=== PATIENT | male | born 1940 | race Caucasian/White ===

== ENCOUNTER → 2018-10-01 | Outpatient (CLI) | payer OTHER ==
[~2018-10-01] MED LIST: LEVOTHYROXINE0.05 MG PO; LIPITOR 20 MG T20 M1 PO; LISINOPRIL20 MG PO; PERCOCET PO
--- NOTE | 2018-10-02 07:22 | PF ---
[address] [address] PULMONARY FUNCTION REPORT Name: JULIANA MO III [id number] Admission: 10/01/18 Attend Phys: Samantha. EDY Cade Discharge: Date of : 38 Report #: [id number] THIS REPORT FOR: //name// CC: ANT Mayorga. Diego Vitale DATE OF SERVICE: 10/01/2018 PRIMARY CARE PHYSICIAN: Dr. Benjie Vitale and Ant Cortez, nurse practitioner. A 77-year-old male with dyspnea. Spirometry shows within normal limits. Best effort shows an FEV1 at 2.8 and FVC of 3.8, ratio 75%. FEV1 is 100% of predicted. FVC is 96% of predicted. Mid flow rates were within normal limits. Lung volumes performed via plethysmography show mild restrictive defect with mild decrease in total lung capacity. Vital capacity was within normal limits. Residual volume mildly diminished. Diffusion was lower limits of normal at 75% of predicted. IMPRESSION: Abnormalities suggest very mild restrictive defect, maybe, somewhat in part to the patient's body habitus. No significant interstitial lung disease is noted at this time. No complications to the above procedure. <ELECTRONICALLY SIGNED> By: Abner Manriquez MD 10/02/18 0722 [id number] manuel Padron
== END ==
LOC: M.PUL 09:58
DX: R06.00 Dyspnea, unspecified (principal)

== ENCOUNTER → 2018-10-28 | Outpatient (CLI) | payer OTHER ==
[2018-10-28 09:08] LABS: CREATININE 1.7 mg/dL (0.6-1.3)
== END ==
LOC: M.LAB 10-26 13:44
PROVIDERS: Surgery
DX: M47.894 Other spondylosis, thoracic region (principal); I71.2 Thoracic aortic aneurysm, without rupture; J92.0 Pleural plaque with presence of asbestos; J84.9 Interstitial pulmonary disease, unspecified; I25.10 Atherosclerotic heart disease of native coronary artery without angina pectoris; K44.9 Diaphragmatic hernia without obstruction or gangrene; G89.29 Other chronic pain

== ENCOUNTER → 2018-12-29 | Outpatient (CLI) | payer OTHER ==
[2018-12-29 10:45] LABS: CREATININE 1.7 mg/dL (0.6-1.3)
== END ==
LOC: M.LAB 10:00 → M.CT 11:30
PROVIDERS: Physician Assistant
DX: K44.9 Diaphragmatic hernia without obstruction or gangrene (principal); J98.4 Other disorders of lung; N26.1 Atrophy of kidney (terminal)

== ENCOUNTER → 2019-11-23 | Outpatient (CLI) | payer OTHER | LOC: M.CT 09:11 | DX: I70.0 Atherosclerosis of aorta (principal); J92.9 Pleural plaque without asbestos; J84.10 Pulmonary fibrosis, unspecified; J84.89 Other specified interstitial pulmonary diseases; I25.10 Atherosclerotic heart disease of native coronary artery without angina pectoris; M47.814 Spondylosis without myelopathy or radiculopathy, thoracic region; M19.011 Primary osteoarthritis, right shoulder ==

== ENCOUNTER → 2020-05-17 | Outpatient (CLI) | payer OTHER ==
--- NOTE | 2020-05-17 14:03 | 2DMMODE ---
[place] [address] 2 D/M-MODE ECHOCARDIOGRAM Name: JULIANA OM III Room: [facility]#: [id number] Admission: 05/17/20 Attend Phys: Spencer Cross, Discharge: Date of : 38 Date of Service: 05/17/20 1403 Report #: [id number] THIS REPORT FOR: cc: Benjie Vitale Steve T. DO Blick,Papi Estrada MD [facility] ~ APPROVED REPORT Study performed: 05/17/2020 13:04:15 EXAM: Comprehensive 2D, Doppler, and color-flow Echocardiogram Patient Location: Out-Patient BSA: 2.05 HR: 78 bpm BP: 116/70 mmHg Other Information Study Quality: Fair Indications Dyspnea 2D Dimensions IVSd: 10.71 (7-11mm) LVOT Diam: 20.30 (18-24mm) LVDd: 42.76 mm PWd: 11.08 (7-11mm) Ascending Ao: 38.73 (22-36mm) LVDs: 32.71 (25-40mm) Aortic Root: 31.13 mm Volumes Left Atrial Volume (Systole) LA ESV Index: 17.70 mL/m2 Aortic Valve AoV Peak Hans.: 1.23 m/s AO Peak Gr.: 6.10 mmHg LVOT Max P.25 mmHg AO Mean Gr.: 3.31 mmHg LVOT Mean P.68 mmHg LVOT Max V: 0.90 m/s AO V2 VTI: 30.22 cm LVOT Mean V: 0.60 m/s MACY (VTI): 2.75 cm2 LVOT V1 VTI: 25.70 cm Mitral Valve E/A Ratio: 0.63 [place] [address] 2 D/M-MODE ECHOCARDIOGRAM Name: JULIANA MO [facility] Room: [facility]#: [id number] Admission: 05/17/20 Attend Phys: Spencer Cross, Discharge: Date of : 38 Date of Service: 05/17/20 1403 Report #: [id number] MV Decel. Time: 261.06 ms MV E Max Hans.: 0.71 m/s MV PHT: 75.71 ms MVA (PHT): 2.91 cm2 TDI E/Lateral E': 8.88 E/Medial E': 14.20 Medial E' Hans.: 0.05 m/s Lateral E' Hans.: 0.08 m/s Pulmonary Valve PV Peak Hans.: 0.90 m/s PV Peak Gr.: 3.21 mmHg Tricuspid Valve RAP Estimate: 5.00 mmHg TR Peak Gr.: 30.52 mmHg RVSP: 35.52 mmHg PA Pressure: 35.52 mmHg Left Ventricle The left ventricle is normal size. There is normal LV segmental wall motion. There is normal left ventricular wall thickness. Left ventricular systolic function is normal. The left ventricular ejection fraction is within the normal range. LVEF is 55-60%. Grade I - abnormal relaxation pattern. Right Ventricle The right ventricle is normal size. The right ventricular systolic function is normal. Atria The left atrium size is normal. The right atrium size is normal. Aortic Valve Aortic valve is mildly calcified. No aortic regurgitation is present. There is no aortic valvular stenosis. Mitral Valve Mild mitral annular calcification. The mitral valve is normal in structure. Mild mitral regurgitation. No evidence of mitral valve stenosis. Tricuspid Valve The tricuspid valve is normal in structure. Mild tricuspid regurgitation. estimated pa pressure 40 [place] [address] 2 D/M-MODE ECHOCARDIOGRAM Name: [id number] Admission: 05/17/20 Attend Phys: Spencer Cross, Discharge: Date of : 38 Date of Service: 05/17/20 1403 Report #: [id number] Pulmonic Valve The pulmonary valve is normal in structure. Mild pulmonic regurgitation. Great Vessels The aortic root is normal in size. The ascending aorta is mildly dilated. IVC is normal in size and collapses >50% with inspiration. Pericardium There is no pericardial effusion. <Conclusion> LVEF is 55-60%. Aortic valve is mildly calcified. Mild tricuspid regurgitation. estimated pa pressure 40 mm Hg <ELECTRONICALLY SIGNED> By: Papi Mcnair MD, [facility] 05/17/20 1403 1403 1403 Papi Mcnair MD, FACC /INF
--- NOTE | 2020-05-19 18:29 | CARDNUC ---
[place] [address] CARDIAC NUCLEAR IMAGING REPORT Name: JULIANA MO III Room: [facility]#: [id number] Admission: 05/17/20 Attend Phys: Spencer Cross, Discharge: Date of : 38 Date of Service: 05/19/20 1828 Report #: [id number] THIS REPORT FOR: cc: Benjie Vitale Steve T. DO Liston,Spencer Greer MD [facility] ~ APPROVED REPORT Study performed: 05/17/2020 15:37:11 Indication: Dyspnea Patient Location: Out-Patient Stress Tech: Julianne Beltran Stress Nurse: Eileen Plascencia RN Ht: 5 ft 9 in Wt: 195 lbs BSA: 2.04 m2 BMI: 28.79 Medical History Medical History: HTN, Hyperlipidemia Medications: atorvastatin, lisinopril Allergies: penicllin Cardiac Risk Factors: HTN, Hyperlipidemia, Tobacco History (Former) Exercise History: Physically active Resting Data Rest SPECT myocardial perfusion imaging was performed in supine position 30 minutes following the intravenous injection of 10.1 mCi of Tc-99m Sestamibi. Time of rest injection: 1410 The images were gated to evaluate regional wall motion and calculate left ventricular ejection fraction. Administration Route: IV Administration Site: Right Arm Exercise Stress At peak stress, the patient was injected intravenously with 32.9mCi of Tc-99m Sestamibi. Time of stress injection: 15:55 Administration Route: IV Administration Site: Right Arm Heart Rate at time of stress injection: 136 bpm. Patient continued to exercise for 1 minute(s[place] [address] CARDIAC NUCLEAR IMAGING REPORT Name: JULIANA MO EDCHEPE NGUYEN Room: [facility]#: [id number] Admission: 05/17/20 Attend Phys: Spencer Cross, Discharge: Date of : 38 Date of Service: 05/19/20 1828 Report #: [id number] Gated Stress SPECT was performed 30 minutes after stress injection. The images were gated to evaluate regional wall motion and calculate left ventricular ejection fraction. Prone imaging was performed. Stress Test Details Stress Test: Exercise stress testing was performed using a Juan protocol. HR Max Heart Rate (APMHR): 140 bpm Resting HR: 87 bpm Target HR (85% APMHR): 119 bpm Max HR Achieved: 136 bpm % of APMHR: 97 Recovery HR: 86 bpm BP Resting BP: 117/69 mmHg Max BP: 163/86 mmHg Recovery BP: 141/75 mmHg ECG Resting ECG: Sinus Rhythm Stress ECG: Sinus Tachycardia ST Change: None Arrhythmia: APC's Recovery ECG: Sinus Rhythm Recovery ST Change: None Recovery Arrhythmia: APC's Clinical The patient tolerated exercise per standard Juan protocol without significant cardiac symptoms. Stress ECG Conclusion Baseline twelve-lead EKG shows sinus rhythm without significant ST segment abnormality. EKGs obtained during and post exercise shows sinus rhythm and sinus tachycardia with no significant ST segment changes when compared to baseline. There were frequent and consecutive premature atrial contractions noted during and post exercise. Study Quality Study: Good Artifact: [place] [address] CARDIAC NUCLEAR IMAGING REPORT Name: JULIANA MO III Room: [facility]#: [id number] Admission: 05/17/20 Attend Phys: Spencer Cross, Discharge: Date of : 38 Date of Service: 05/19/20 1828 Report #: [id number] At rest, the left ventricular ejection fraction was 68%.. Post stress, the left ventricular ejection was 72%.. TID = 0.86. Perfusion Perfusion images obtained at rest and post exercise stress showed no defect to suggest infarct or ischemia. Wall Motion Left ventricular systolic function appears normal on gated studies. There were no significant wall motion abnormalities noted. Nuclear Conclusion ECG Findings: negative for ischemia Clinical Findings: negative for ischemia Nuclear Findings: negative for ischemia Exercise Capacity: Fair Left Ventricular Function: normal Risk Study: low Perfusion study show no defect to suggest infarct or ischemia. Left ventricular systolic function appears normal on gated studies. This is a low risk study. <Conclusion> Baseline twelve-lead EKG shows sinus rhythm without significant ST segment abnormality. EKGs obtained during and post exercise shows sinus rhythm and sinus tachycardia with no significant ST segment changes when compared to baseline. There were frequent and consecutive premature atrial contractions noted during and post exercise. <ELECTRONICALLY SIGNED> By: Spencer Cross MD, [facility] 05/19/201827 27 27 Spencer Cross MD, FACC /INF
== END ==
LOC: M.CRD 04-18 08:58
PROVIDERS: ATTEND Internal Medicine Cardiovascular Disease
DX: I08.8 Other rheumatic multiple valve diseases (principal); I25.10 Atherosclerotic heart disease of native coronary artery without angina pectoris

== ENCOUNTER → 2020-05-30 | Outpatient (CLI) | payer OTHER ==
--- NOTE | ~2020-05-30 | PF ---
[address] [address] PULMONARY FUNCTION REPORT Name: JULIANA MO NGUYEN Room: [facility]#: [id number] Admission: 05/30/20 Attend Phys: Benjie Vitale DO Discharge: Date of : 38 Report #: [id number] THIS REPORT FOR: //name// CC: Ramin Vitale DATE OF SERVICE: 05/30/2020 The FEV1/FVC ratio was decreased to 68% with a forced vital capacity decreased to 47%. The FEV1 is decreased to 45%. The FEF 25-75 is decreased to 34%. After the administration of a bronchodilator, there is a 13% increase in FVC, 26% increase in FEV1 and 97% increase in FEF 25-75. The patient's post-bronchodilator FEV1 is noted to be 1.56 liters. The total lung capacity is severely decreased to 56% with a residual volume markedly decreased to 43%. The DLCO as adjusted for hemoglobin is also markedly decreased to 32%. IMPRESSION: 1. Severe obstruction with evidence of reversibility. It would be possible that the severity of obstruction is overestimated due to the presence of concurrent restriction. 2. Restriction with a total lung capacity, decreased to 56%. 3. Severe reduction in DLCO as adjusted for hemoglobin to 32%. By: [id number] manuel [place]
== END ==
LOC: M.PUL 11:00
DX: J61 Pneumoconiosis due to asbestos and other mineral fibers (principal); R06.02 Shortness of breath

== ENCOUNTER → 2020-11-13 | Outpatient (CLI) | payer OTHER | LOC: M.CT 11:08 | PROVIDERS: ATTEND Surgery | DX: I71.2 Thoracic aortic aneurysm, without rupture (principal); J98.4 Other disorders of lung ==

== ENCOUNTER → 2021-02-22 | Outpatient (CLI) | payer OTHER ==
--- NOTE | 2021-03-05 08:18 | PF ---
[address] [address] PULMONARY FUNCTION REPORT Name: JULIANA MO III [facility] [id number] Admission: 02/22/21 Attend Phys: Benjie Vitale DO Discharge: Date of : 38 Report #: [id number] THIS REPORT FOR: cc: Benjie Vitale Steve T. DO Pervez, Adeel MD ~ DOC #: [id number] Tomy Francois MD DATE OF VISIT: 02/22/2021 SPIROMETRY: The FEV1/FVC ratio is decreased to 65% with an FVC decreased to 51%. The FEV1 is also decreased to 47%. The FEF 25-75 is decreased to 30%. After the administration of a bronchodilator, there is a 14% increase in FVC. There is no significant increase in any of the other values mentioned here. The patient's post-bronchodilator FEV1 is 1.32 L. LUNG VOLUMES: The total lung capacity is moderately decreased to 59% with a residual volume decreased to 63%. DIFFUSION CAPACITY: The DLCO as adjusted for hemoglobin is decreased to 38%. IMPRESSION: 1. Obstruction is present with evidence of reversibility. It is likely moderate, but FEV1 is decreased to only 47% of the reference range as there is also significant restriction present. 2. There is a marked restriction noted with a total lung capacity markedly decreased to 59% only. 3. The DLCO as adjusted for hemoglobin is moderately decreased at 38%. Tomy Francois MD AP/PAR <ELECTRONICALLY SIGNED> By: Tomy Francois MD 03/05/21 0818 2105 [id number] Francois MD /nt
== END ==
LOC: M.PUL 13:00
DX: R94.2 Abnormal results of pulmonary function studies (principal); J61 Pneumoconiosis due to asbestos and other mineral fibers; Z88.0 Allergy status to penicillin; Z88.8 Allergy status to other drugs, medicaments and biological substances

== ENCOUNTER → 2021-05-21 | Outpatient (CLI) | payer OTHER ==
[~2021-05-21] MED LIST changes: +OMEPRAZOLE 20 M20 M1 PO
== END ==
LOC: M.PC 09:28
PROVIDERS: ATTEND Physical Medicine & Rehabilitation
DX: M47.816 Spondylosis without myelopathy or radiculopathy, lumbar region (principal); M51.36 Other intervertebral disc degeneration, lumbar region; I12.9 Hypertensive chronic kidney disease with stage 1 through stage 4 chronic kidney disease, or unspecified chronic kidney disease; N18.9 Chronic kidney disease, unspecified; E78.5 Hyperlipidemia, unspecified; E03.9 Hypothyroidism, unspecified; M19.90 Unspecified osteoarthritis, unspecified site; Z88.0 Allergy status to penicillin; Z88.8 Allergy status to other drugs, medicaments and biological substances; Z79.899 Other long term (current) drug therapy

== ENCOUNTER → 2021-06-26 | Outpatient (CLI) | payer OTHER | LOC: M.RAD 14:16 | PROVIDERS: ATTEND Chiropractor | DX: J92.0 Pleural plaque with presence of asbestos (principal); I70.0 Atherosclerosis of aorta ==